=== PATIENT | female | born 1955 | race Caucasian/White ===

== ENCOUNTER 2017-02-22 09:05 | Emergency (ER) | payer BC ==
[~2017-02-22] VITALS: Ht 149.8 cm; Wt 68.0 kg
[~2017-02-22 09:05] MED LIST: FLEXERIL10 MG PO; HYDROCODONE BIT1 T11 PO; KEFLEX500 MG PO; MOTRIN600 MG PO; PREDNICOT20 MG PO
[2017-02-22] MEDS ORDERED: MULTIPLE VITAM1 EAC2 PO (09:12)
[2017-02-22] MEDS ORDERED: AMOXICILLIN500 M2 PO (09:28)
[2017-02-22] MEDS ORDERED: PREDNISONE20 M1 PO (09:28)
[2017-02-22] MEDS ORDERED: ROBITUSSIN DM 105 ML PO (09:28)
== END 2017-02-22 09:51 | disposition home or self-care (01) ==
LOC: ED 09:05
DX: J20.9 Acute bronchitis, unspecified (principal); Z79.899 Other long term (current) drug therapy

== ENCOUNTER 2017-05-10 09:14 | Emergency (ER) | payer BC ==
[~2017-05-10] VITALS: Wt 74.8 kg
[~2017-05-10 09:14] MED LIST changes: +AMOXICILLIN500 M2 PO; +MULTIPLE VITAM1 EAC2 PO; +PREDNISONE20 M1 PO; +ROBITUSSIN DM 105 ML PO
[2017-05-10 09:45] LABS: BASO % 0.3 % (0.0-1.0); EOS % 0.3 % (1.0-4.0); HEMATOCRIT 42.8 % (37.0-47.0); HEMOGLOBIN 13.2 g/dl (12.0-16.0); LYMPH # 0.7 10*3/uL (1.3-4.4); LYMPH % 5.2 % (27.0-41.0); MEAN CELL VOLUME 88.6 fl (81.0-99.0); MEAN CORPUSCULAR HGB 27.3 pg (27.0-31.0); MEAN CORPUSCULAR HGB CONC 30.8 g/dl (33.0-37.0); MEAN PLATELET VOLUME 10.9 fl (9.6-12.3); MONO # 0.8 10*3/uL (0.1-1.0); MONO % 5.5 % (3.0-9.0); NEUT # 12.3 10*3/uL (2.3-7.9); NEUT % 88.4 % (47.0-73.0); PLATELET COUNT AUTOMATED 211 10*3/uL (130-400); RED BLOOD COUNT 4.83 10*6/uL (4.10-5.10); RED CELL DISTRI WIDTH 12.6 % (0-14.5); WHITE BLOOD COUNT 13.9 10*3/uL (4.8-10.8)
[2017-05-10 09:58] LABS: ALBUMIN 3.5 gm/dl (3.1-4.5); ALKALINE PHOSPHATASE 89 U/L (45-117); BUN 20 mg/dl (7-24); CHLORIDE 108 mmol/L (98-107); CREATININE 0.77 mg/dL (0.55-1.02); LIPASE 61 U/L (73-393); POTASSIUM 3.7 mmol/L (3.5-5.1); SGOT/AST 14 IU/L (3-35); SGPT/ALT 19 U/L (12-78); SODIUM 140 mmol/L (136-145); TOTAL PROTEIN 7.7 gm/dL (6.4-8.2)
[2017-05-10] MEDS ORDERED: CIPRO500 MG PO (10:12)
[2017-05-10] MEDS ORDERED: FLAGYL500 MG PO (10:12)
[2017-05-10] MEDS ORDERED: FLORASTOR250 MG PO (10:12)
== END 2017-05-10 11:00 | disposition home or self-care (01) ==
LOC: ED 09:14
PROVIDERS: Emergency Medicine
DX: K57.32 Diverticulitis of large intestine without perforation or abscess without bleeding (principal); Z79.899 Other long term (current) drug therapy

== ENCOUNTER → 2017-06-20 | Outpatient (CLI) | payer BC ==
[~2017-06-20] MED LIST changes: +CIPRO500 MG PO; +FLAGYL500 MG PO; +FLORASTOR250 MG PO
== END | disposition home or self-care (01) ==
LOC: MAMMO 16:11
DX: Z12.31 Encounter for screening mammogram for malignant neoplasm of breast (principal)

== ENCOUNTER → 2017-07-01 | Outpatient (CLI) | payer BC ==
[2017-07-01 10:50] LABS: BASO # 0.1 10*3/uL (0.0-0.1); BASO % 0.9 % (0.0-1.0); EOS # 0.2 10*3/uL (0.0-0.4); EOS % 4.3 % (1.0-4.0); HEMATOCRIT 44.8 % (37.0-47.0); HEMOGLOBIN 14.1 g/dl (12.0-16.0); LYMPH # 1.4 10*3/uL (1.3-4.4); LYMPH % 25.7 % (27.0-41.0); MEAN CELL VOLUME 87.7 fl (81.0-99.0); MEAN CORPUSCULAR HGB 27.6 pg (27.0-31.0); MEAN CORPUSCULAR HGB CONC 31.5 g/dl (33.0-37.0); MEAN PLATELET VOLUME 11.3 fl (9.6-12.3); MONO # 0.4 10*3/uL (0.1-1.0); NEUT # 3.3 10*3/uL (2.3-7.9); NEUT % 60.7 % (47.0-73.0); PLATELET COUNT AUTOMATED 247 10*3/uL (130-400); RED BLOOD COUNT 5.11 10*6/uL (4.10-5.10); RED CELL DISTRI WIDTH 12.3 % (0-14.5); WHITE BLOOD COUNT 5.4 10*3/uL (4.8-10.8)
[2017-07-01 11:16] LABS: BUN 26 mg/dl (7-24); CHLORIDE 104 mmol/L (98-107); POTASSIUM 3.6 mmol/L (3.5-5.1); SODIUM 141 mmol/L (136-145)
[2017-07-01 11:24] LABS: ALKALINE PHOSPHATASE 90 U/L (45-117); CHOLESTEROL 245 mg/dL (<200); CREATININE 0.98 mg/dL (0.55-1.02); FREE T4 0.89 ng/dl (0.76-1.46); HDL CHOLESTEROL 56 mg/dl (40-60); LDL CHOLESTEROL 168 mg/dL (9-159); SGOT/AST 20 IU/L (3-35); SGPT/ALT 20 U/L (12-78); TOTAL PROTEIN 7.8 gm/dL (6.4-8.2); TRIGLYCERIDES 106 mg/dl (<150); VLDL CHOLESTEROL 21 mg/dL (6-40)
== END ==
LOC: LAB 09:55
PROVIDERS: Family Medicine
DX: Z13.21 Encounter for screening for nutritional disorder (principal); I10 Essential (primary) hypertension; E66.9 Obesity, unspecified

== ENCOUNTER → 2018-01-30 | Outpatient (CLI) | payer BC | END | disposition home or self-care (01) | LOC: RAD 16:10 | DX: M25.461 Effusion, right knee (principal) ==

== ENCOUNTER → 2018-06-11 | Outpatient (CLI) | payer OTHER ==
[~2018-06-11] MED LIST changes: +FOLGARD TABLET1 EACH PO; +IBU600 M1 PO; +LIPITOR10 MG PO; +OMEPRAZOLE20 M3 PO; +ST. JOSEPH ASPI81 M1 PO; +ZESTORETIC 10-1 EACH PO
== END | disposition home or self-care (01) ==
LOC: ORTHO 01:06 → RAD 09:00 → ORTHO 15:30
DX: S69.90XA Unspecified injury of unspecified wrist, hand and finger(s), initial encounter (principal); M17.11 Unilateral primary osteoarthritis, right knee; M25.761 Osteophyte, right knee; M25.461 Effusion, right knee; M79.89 Other specified soft tissue disorders; X58.XXXA Exposure to other specified factors, initial encounter; Y93.89 Activity, other specified; Y92.89 Other specified places as the place of occurrence of the external cause; Y99.8 Other external cause status

== ENCOUNTER → 2018-09-10 | Outpatient (CLI) | payer OTHER | END | disposition home or self-care (01) | LOC: CT 08-23 17:00 | DX: M17.11 Unilateral primary osteoarthritis, right knee (principal); M21.161 Varus deformity, not elsewhere classified, right knee ==

== ENCOUNTER → 2018-10-22 | Outpatient (CLI) | payer OTHER ==
[~2018-10-22] VITALS: Ht 149.8 cm; Wt 70.3 kg
== END | disposition home or self-care (01) ==
LOC: SDC 09-27 13:15 → LAB 12:00 → SDC 10-23 01:37 → EDSTATUS 10-23 13:15 → SDC 10-23 13:15
DX: M17.11 Unilateral primary osteoarthritis, right knee (principal)

== ENCOUNTER 2018-11-13 01:29 | Inpatient (IN) | payer OTHER ==
[2018-11-06 16:15] VITALS: BP 119/67
[2018-11-13] VITALS (8 sets, daily range): BP systolic 113–142; BP diastolic 62–75
[~2018-11-13] VITALS: Ht 149.9 cm; Wt 70.3 kg
--- NOTE | 2018-11-13 14:56 | NUR ---
IS AWARE OF HER CONSULT.
--- NOTE | 2018-11-13 15:00 | NUR ---
A 63, admitted to , under the services of REGAN Laguna MD with a diagnosis of RTK POST-OP. Chief complaint is RTK. Patient arrived via bed from [place]. Monitor applied. Initial assessment completed. Vital signs taken and recorded. REGAN LAGUNA MD notified of admission to the unit. Orders received. See assessment for past medical history, medications and allergies. Patient and/or family oriented to unit. Clothing/patient valuable form completed. ROSEANNA SABILLON
--- NOTE | 2018-11-13 15:00 | NUR ---
Time: 1500 A 63 year old FEMALE admitted to under services of DR. LILIA GRIMM,REGAN. Pt. arrived via bed from [place]. Chief complaint: RTK POST-OP. ROSEANNA SABILLON
--- NOTE | 2018-11-13 15:31 | NUR ---
WAS INFORMED THAT PATIENT IS OUT OF SURGERY AND IN ROOM, SINCE WAS SEEING FOR . INFORMED NO ADMIT TO ORDERS AT THIS TIME AND HOME MEDS WERE VERIFIED. STATED PATIENT TO BE IMC AT THIS TIME.
--- NOTE | 2018-11-13 15:36 | NUR ---
Pt instructed on incentive spirometer. 1500c 10 breaths. Encouraged pt to use on own 10x an hour. HR 89 SpO2 on room air 100%
[2018-11-14] VITALS: BP 113/68
[2018-11-14 04:00] VITALS: BP 127/65
--- NOTE | 2018-11-14 05:55 | NUR ---
CLAUDIO GUTIÉRREZ [id number] Please refer to the physician's history and physical for past medical history, comorbid conditions, and allergies. Diagnosis: RIGHT KNEE POST OP Jaren Score: 18,LOW OR NO RISK WOUND DESCRIPTIONS: Dressing intact to right leg. Patient stated she had surgery yesterday with Dr. Murphy for a knee replacement. She stated she will make her follow up appointment with Dr. Murphy for discharge. No strikethrough drainage noted at time of assessment. Patient stated she is able to wiggle her toes this morning and is starting to get feeling back from surgery yesterday. Surface the patient is resting on: Isoflex SKIN PREVENTION RECOMMENDATION: 1. Pressure redistribution support surface as appropriate 2. Elevate heels 3. Remove boots/TEDS every shift and reapply 4. Head of bed 30 degrees as tolerated 5. Assess nutrition and hydration 6. Manage moisture 7. Avoid the use of containment devices while in bed 8. Use absorptive products on surfaces limit layers of linens on bed 9. Turn and reposition every 1-2 hours in bed and every 1 hour in chair as tolerated 10. Weight shifts every 15 minutes while up in chair 11. Offloading with pillows or device to keep heels elevated off bed 12. Monitor skin at least every shift 13. Inspect under medical devices twice a day WOUND TREATMENT RECOMMENDATIONS: Heel raiser pro boots to bilateral feet while in bed. Continue Dr. Becker post op orders to right knee.
[2018-11-14 06:28] LABS: BASO % 0.2 % (0.0-1.0); LYMPH % 10.5 % (27.0-41.0); MEAN CELL VOLUME 91.8 fl (81.0-99.0); MEAN CORPUSCULAR HGB 28.5 pg (27.0-31.0); MEAN PLATELET VOLUME 11.1 fl (9.6-12.3); MONO # 0.7 10*3/uL (0.1-1.0); MONO % 7.4 % (3.0-9.0); NEUT # 7.8 10*3/uL (2.3-7.9); NEUT % 81.6 % (47.0-73.0); PLATELET COUNT AUTOMATED 210 10*3/uL (130-400); RED BLOOD COUNT 3.16 10*6/uL (4.10-5.10); RED CELL DISTRI WIDTH 11.8 % (0-14.5); WHITE BLOOD COUNT 9.6 10*3/uL (4.8-10.8)
[2018-11-14 06:46] LABS: CREATININE 1.12 mg/dL (0.55-1.02); POTASSIUM 3.5 mmol/L (3.5-5.1)
--- NOTE | 2018-11-14 07:15 | NUR ---
ARRIVED ONSHIFT, INTRODUCED TO PATIENT, BEDSIDE REPORT RECEIVED, WHITE BOARD UPDATED. NO NEEDS VOICED AT THSI TIME.
[2018-11-14 08:00] VITALS: BP 140/70
--- NOTE | 2018-11-14 08:01 | NUR ---
Shift chart check completed.
--- NOTE | 2018-11-14 08:50 | NUR ---
PHYSICAL THERAPY Physical therapy evaluation completed. Full details and evaluation to follow. Low complexity skilled PT evaluation performed ([id number]). PT will work on strength, bed mobility, transfers, gait, and stair training per POC. Recommend home with home health pending patient achieves stair goals. Thank you, Genie Stapleton, SPT Kamilah Brown,PT,DPT.
--- NOTE | 2018-11-14 09:02 | NUR ---
Wound Care Recommendations left with Peggy nurse caring for patient as well as left message with Dr. Little.
--- NOTE | 2018-11-14 09:17 | NUR ---
Occupational Therapy evaluation completed 5 with full eval to follow.Precautions include R TKA precautions, wh walker use, CPM use to RLE, moderate complexity level 16654 via chart review, testing and evaluation. Recommend OT per POC and home with home health SN, OT PT. Thank you Kita Saenz OTR/L
--- NOTE | 2018-11-14 11:00 | NUR ---
Robot Technician in to talk to patient. Patient states lives at home with her and son. There are 4 steps in the home. Physician: Dr. Viet Little [facility]acy: [facility] Home health services: [facility] Patient's level of ADLs: MINIMAL ASSIST Patient has working utilities: yes DME: walker Follow-up physician's appointment after d/c: she prefers to make her own follow up appt after discharge Does patient want to access PORTAL?: no Discharge plan discussed with patient. She lives at home with her and her son but plans on staying with her sister once she is discharged form the hospital as her is a entry level truck driver that will be on the road for 2-3 weeks at a time and her son works in the [employer] field. Her sister has 3 steps to get into her home. She doesn't think she will need a BSC as the bathroom she will be using is catty corner to where she will be staying. She states she has a walker. Discussed short term SNF and she refuses. Discussed home health care services and she is agreeable. When provided with a list of agencies she chose [facility]. She is normally independent in her ADLs and ambulation. Her will transport on discharge. PAUL ALVARADO
[2018-11-14 12:00] VITALS: BP 116/61
--- NOTE | 2018-11-14 13:15 | NUR ---
OT NOTE Patient was seen this date for 20 minutes of OT treatment. Patient was supine in bed upon arrival and was agreeable to OT treatment. Patient's was additionally in the room. Patient performed bed mobility with Min A lifting the R LE. Patient was seated EOB with "some dizziness". Patient performed functional sit/stand and mobility with the ww into the bathroom with Min A. Patient educated on safe ww use at the sink with good carryover. Patient stood at the sink for grooming tasks to increase activity tolerance in stance. Patient in stance for approximately 6 minutes. Patient returned to EOB for education of adaptive equipment for lower body dressing. Patient demonstrated good carryover of task with Min A with the sock aid to don and supervision with the crop roller to doff. Patient returned supine in bed for completion of OT treatment. Nursing and DOUGH MOLDER in room at conclusion. Nursing donned knee CPM machine. All needs were within reach. Patient to continue with OT treatment to maximize independence in ADLs and functional mobility/transfers. Rocio Juarez, OTR/L
--- NOTE | 2018-11-14 13:25 | NUR ---
PHYSICAL THERAPY PT SUPINE IN BED UPON ARRIVAL WITH IV AND CATH AND OVER THE BED TRAPIZE. PT IDENTIFIED BY NAME AND SOB. PT AGREED TO ALL PHYSICAL THERAPY THREATMENT THIS VISIT. PT PERFORMED SUPINE TO SITTING EOB WITH Shay X1 WITH RLE. PT PERFORMED SIT TO STAND FROM BED TO FWW WITH SBA. PT GAIT TRAINED 15FT X2 WITH FWW AND CGA X1 WITH ANTALGIC GAIT. PT PERFORMED STS TO EOB WITH SBA AND USE OF BUE FOR ASSIATANCE. PT PERFORMED SIT TO SUPINE WITH Shay X1 WITH RLE. PT SUPINE IN BED WITH CPM RN UROLOGY LIGHT IN HAND AND FAMILY MEMBER PRESENT AT END OF SESSION. PT REPORTED NO OTHER NEEDS AT THIS TIME. PT SEEN 1:1 FOR 14 MINS. PIEREC DEVI PTA
--- NOTE | 2018-11-14 15:36 | NUR ---
CALL PLACED TO DR. LEE TO CLARIFY WHEN DRESSING IS TO BE CHANGED, ORDER READS DRESSING CHANGE POST OP DAY 2 WITH SURGER BEING YESTERDAY.
[2018-11-14 16:00] VITALS: BP 117/41
[2018-11-14 20:00] VITALS: BP 112/46
--- NOTE | 2018-11-14 21:19 | NUR ---
PATIENT C/O OF ONGOING HEADACHE NOT RELIEVED BY ROUTINE ULTRAM, MEDICATED WITH 1 PERCOCET, PATIENT DECLINED 2ND TABLET.
--- NOTE | 2018-11-14 22:20 | NUR ---
PATIENT RESTING QUIETLY WITH EYES CLOSED, RESPIRATIONS EASY AND NON LABORED. PAIN MEDICATION EFFECTIVE.
--- NOTE | 2018-11-14 22:48 | NUR ---
PATIENT TAKEN OFF CPM MACHINE D/T BEING ON ALL DAY AND C/O OF R KNEE DISCOMFORT. BLANKET ROLL PLACED UNDER ANKLE AND ICE PACS IN PLACE. PATIENT READJUSTED. STATED SHE ELT BETTER. CPM FLEXION DEGREE TO IN CREASE FROM 30 TO 40 DEGREE WHEN PLACED BACK ON.
[2018-11-15] VITALS: BP 113/51
--- NOTE | 2018-11-15 03:00 | NUR ---
TOOK OVER CARE OF PATIENT AT THIS TIME. PT LYING IN BED, SLEEPING. RESPIRATIONS EASY AND UNLABORED WITH NO S/S OF DISTRESS. IV FLUIDS INFUSING. CALL LIGHT IN REACH.
[2018-11-15 06:38] LABS: BASO % 0.4 % (0.0-1.0); EOS % 0.6 % (1.0-4.0); HEMATOCRIT 25.7 % (37.0-47.0); HEMOGLOBIN 8.1 g/dl (12.0-16.0); LYMPH % 13.9 % (27.0-41.0); MEAN CELL VOLUME 91.5 fl (81.0-99.0); MEAN CORPUSCULAR HGB 28.8 pg (27.0-31.0); MEAN CORPUSCULAR HGB CONC 31.5 g/dl (33.0-37.0); MEAN PLATELET VOLUME 11.2 fl (9.6-12.3); MONO # 0.6 10*3/uL (0.1-1.0); MONO % 8.7 % (3.0-9.0); NEUT # 5.5 10*3/uL (2.3-7.9); PLATELET COUNT AUTOMATED 161 10*3/uL (130-400); RED BLOOD COUNT 2.81 10*6/uL (4.10-5.10); RED CELL DISTRI WIDTH 11.9 % (0-14.5); WHITE BLOOD COUNT 7.3 10*3/uL (4.8-10.8)
[2018-11-15 08:00] VITALS: BP 130/63
--- NOTE | 2018-11-15 08:00 | NUR ---
PHYSICAL THERAPY Patient seen this am 1:1 for therapy visit and was supine bed upon therapist arrival. Patient presented with continuous IV treatment and voices mild 2/10 c/o R knee pain. Patient also presents with increased R upper Gastroc edema but no c/o of pain upon therapist palpation. Patient transfers supine to sit EOB Min A, requiring therapist assist for R LE support during transfer. Patient completed sit to stand CGA and ambulates with use of wh walker, CGA, 20'x 1 to bathroom, then 30'x 1 to bedside chair. Patient demonstrates decreased stride with antalgic, "step to" gait pattern. Patient is unsteady at times during 180 turns and fatigues quickly. Patient remained in bedside chair semi reclined with R LE elevated on towel roll, call light, tray table, cell phone and body alarm. Will continue per POC as tolerated, total treatment time 17 minutes. Manjit Rodriguez, DRINKING WATER TECHNICIAN
--- NOTE | 2018-11-15 08:45 | NUR ---
CPM MACHINE PLACED TO PT'S RIGHT LEG AT THIS TIME PER THERAPY DEPT.
--- NOTE | 2018-11-15 09:30 | NUR ---
PT MEDICATED WITH PERCOCET 2 TABS FOR C/O RIGHT KNEE SURGICAL SITE PAIN.
--- NOTE | 2018-11-15 09:43 | NUR ---
OT NOTE PATIENT SEEN FOR 25 MINUTE SESSION THIS DAY AND IDENTIFIED BY NAME AND . PATIENT SUPINE IN BED UPON ARRIVAL AND STATED 2/10 PAIN AT START OF SESSION. BED MOBILITY WITH MIN A. STS WITH MIN A FROM EOB. FUNCTIONAL MOBILITY INTO BATHROOM AREA WITH SBA. GROOMING TASKS COMPLETE WHILE STANDING SINK SIDE WITH SBA. EDUCATION ON PROPER SEQUENCING WITH WW REQUIRED. PATIENT COMPLETE FUNCTIONAL TRANSFER TO RECLINER WITH SBA/CGA AND VERBAL CUES FOR HAND/FOOT PLACEMENT DURING TRANSFER. PATIENT ENDED SESSION SEATED IN RECLINER WITH ALL ITEMS IN PLACE. PATIENT STATED 5/10 PAIN AT END OF SESSION. CONTINUE WITH CURRENT POC AND D/C PLAN TO HOME WITH HH. DEANNA CARMEN/Donna
--- NOTE | 2018-11-15 10:53 | NUR ---
Nutritional Support Services Note: Dx of right total knee. Ht.4'11 Wt.155#. Appetite is fair to good for meals. Discussed good po intake and adaquate protein intake to promote healing. No other nutrition intervention needed at this time. Will follow as needed. Xochitl Duggan Rdn Ld
--- NOTE | 2018-11-15 11:00 | NUR ---
cocktail lounge manager in to see patient. No new needs or request at this time. Family present at the bedside. Per multidisciplinary discharge planning meeting 3rd day post op would be tomorrow, Monday. Possible discharge on Monday. When medically stable she will be discharged to home with [facility] services.
--- NOTE | 2018-11-15 12:03 | NUR ---
VERBAL ORDER TO D/C FLUIDS REC'D FROM . SEE APR.
--- NOTE | 2018-11-15 12:30 | NUR ---
PHYSICAL THERAPY Patient seen this pm 1;1 for therapy visit and was supine in bed upon therapist arrival. Patient voices no c/o's pain, stating she just had recent pain Med. Patient instructed / performed supine B LE therex, all planes, x 15 reps each, including ankle pumps, Quad / Glute sets with 5 sec hold, heel slides and SLR x 2. Patient demonstrated increased difficulty with R LE hip flexion and heel slide secondary to decreased ROM / strength. Patient transfers supine to sit EOB with use of overhead trapeze, CGA with only Min therapist assist of R LE. Patient completed sit to stand CGA and ambulates with use of wh walker, CGA, 50'x 1, demonstrating increased stride, no c/o's pain and good upright posture. Patient returned to supine in bed with only mild fatigue and was very happy with her gait progress. Patient remained in bed with call light, tray table, cell phone and bed alarm as lunch arrived. Will continue per POC as tolerated, total treatment time 23 minutes. Manjit Rodriguez, MEAT MOLDER
--- NOTE | 2018-11-15 12:45 | NUR ---
SCHEDULED TRAMADOL GIVEN FOR PAIN RATED 2/10. CALL LIGHT IN REACH. SITTING UP, EATING LUNCH. INFORMED TO CALL FOR NURSE WHEN SHE URINATES FOR POST-REMOVAL OF CORREA CATH. PT ACKNOWLEDGED UNDERSTANDING.
--- NOTE | 2018-11-15 13:07 | NUR ---
OT NOTE PATIENT SEEN FOR 15 MINUTE SESSION THIS DAY WITH DAUGHTER PRESENT AND IDENTIFIED BY NAME AND . PATIENT WITH NO C/I PAIN AT THIS TIME AFTER RECIEVING PAIN MEDS. PATIENT ABLE TO COMPLETE BED MOBILITY WITH MIN A FOR POSITIONING OF RLE. STS FROM EOB AT SBA TO WW. FUNCTIONAL MOBILITY WITH SBA WITH NOTICABLE IMPROVEMENT OF TECHNIQUES. PATIENT RETURNED TO EOB WITH SBA. MIN A FOR BED MOBILITY POSITIONING OF RLE. PATIENT ENDED SESSION SUPINE IN BED WITH HOB ELEVATED AND ALL ITEMS IN PLACE. CONTINUE CURRENT POC WITH D/C PLAN TO HOME. DEANNA CARMEN/Donna
--- NOTE | 2018-11-15 15:12 | NUR ---
Spoke to Trina in Dr. Murphy's office regarding possibility of discharge tomorrow and if a CPM will be needed for home. Dr. Murphy will return tomorrow.
[2018-11-15 16:00] VITALS: BP 97/48
--- NOTE | 2018-11-15 20:56 | NUR ---
SURGICAL DRSG CHANGED PER ORDERS. TOLERATED WELL. NO VOICED COMPLAINTS. ICE PACK BEHIND KNEE. CALL LIGHT IN REACH IVF GOING WITH EASE
--- NOTE | 2018-11-15 23:00 | NUR ---
ASSUMED CARE FOR THIS PT AT THIS TIME. NO C/O VOICED AT PRESENT TIME. DENIES NEED FOR PAIN MED. CALL LIGHT IN REACH.
[2018-11-16] VITALS: BP 120/53
[2018-11-16 06:51] LABS: BASO % 0.4 % (0.0-1.0); EOS # 0.1 10*3/uL (0.0-0.4); EOS % 1.1 % (1.0-4.0); HEMOGLOBIN 8.3 g/dl (12.0-16.0); LYMPH % 13.5 % (27.0-41.0); MEAN CELL VOLUME 91.9 fl (81.0-99.0); MEAN CORPUSCULAR HGB 29.3 pg (27.0-31.0); MEAN CORPUSCULAR HGB CONC 31.9 g/dl (33.0-37.0); MEAN PLATELET VOLUME 11.3 fl (9.6-12.3); MONO # 0.5 10*3/uL (0.1-1.0); MONO % 7.5 % (3.0-9.0); NEUT # 5.6 10*3/uL (2.3-7.9); NEUT % 77.2 % (47.0-73.0); PLATELET COUNT AUTOMATED 179 10*3/uL (130-400); RED BLOOD COUNT 2.83 10*6/uL (4.10-5.10); RED CELL DISTRI WIDTH 11.9 % (0-14.5); WHITE BLOOD COUNT 7.2 10*3/uL (4.8-10.8)
--- NOTE | 2018-11-16 08:30 | NUR ---
Spoke to Trina at Dr. Murphy's office regarding ordering of CPM for home. Trina states PCP will need to order home Lovenox. Dr. Little notified.
--- NOTE | 2018-11-16 08:40 | NUR ---
PHYSICAL THERAPY Patient seen this am 1;1 for therapy visit and was supine in bed upon therapist arrival. Patient identified by name and , voicing mild 2/10 R knee pain. Patient transfers supine to sit EOB with MIN/CGA, only needing therapist assist to hold R LE during transfer. Patient performed several sit to stand transfers at bedside CGA, demonstrating improved technique with increased confidence. Patient ambulates with wh walker, CGA, 30'x 2 to bathroom, completing toilet transfer, SBA x 1. Patient returned to supine in bed demonstrating improved gait maciej and only mild fatigue. Patient able to use overhead trapeze bar for HOB positioning and performed supine B LE therex, all planes, x 10 reps each without c/o. Patient remained in bed with call light, tray table, cell phone and bed alarm. Will continue per POC as tolerated, total treatment time 23 minutes. Manjit Rodriguez, BOILER/CHILLER TECHNICIAN
--- NOTE | 2018-11-16 09:06 | NUR ---
Faxed home health order to [facility]
--- NOTE | 2018-11-16 10:29 | NUR ---
PT PLACED ON CPM MACHINE AT THIS TIME. INCREASED TO 50 TODAY.
--- NOTE | 2018-11-16 10:47 | NUR ---
[facility] not in contract with patient's insurance per Whit at [facility]. Faxed home health care referral to [facility]. Awaiting response.
[2018-11-16 12:00] VITALS: BP 131/55
--- NOTE | 2018-11-16 12:23 | NUR ---
Spoke to Monday at [facility]. They received the referral. Their clinical director is currently out of the office and will review when she returns. Awaiting return call.
[2018-11-16] MEDS ORDERED: Lovenox80 MG/0.8 SC (12:35)
--- NOTE | 2018-11-16 13:19 | NUR ---
Received call from Sangeeta from [facility]. They are full and are unable to take patient at this time. Spoke to Whit at [facility] as they are on the home healthcare list sent from [employer] and Whit states they are not in contract with them. Home health care referral faxed to [facility]. Awaiting response.
--- NOTE | 2018-11-16 13:48 | NUR ---
PHYSICAL THERAPY CO-SIGN I approve of the Physical Therapy notes written above. PAUL ARAUJO PT,DPT
--- NOTE | 2018-11-16 13:55 | NUR ---
Faxed CPM to [facility]. Awaiting response.
--- NOTE | 2018-11-16 14:17 | NUR ---
Spoke to Pat at [facility] regarding referral. Their billing is currently reviewing the patient's insurance and will return call.
--- NOTE | 2018-11-16 14:29 | NUR ---
Spoke to Julian at [facility] regarding coverage for patient's CPM at home. Patient's insurance is out of network. Cost will be $40 for the first day and $15 for subsequent days. Discussed with patient and her and daughter who are at the bedside. She is not able to afford that. Spoke to Reji in Dr. Murphy's office who stated it was patient's choice whether she wanted to have the CPM or not. Explained to patient it was her choice whether she wanted the CPM at home. She states at this time they wish not to make that payment.
--- NOTE | 2018-11-16 14:38 | NUR ---
Called to room to speak to patient and regarding home CPM. They wish to pay a week. Spoke to Julian at [facility] regarding patient and family are willing to pay for 7 days. Julian states when the machine is dropped off they will expect payment. Patient and informed and ok with that. Spoke to Katherin from [facility]. They will be able to start services tomorrow. Patient, , and nurse notified.
--- NOTE | 2018-11-16 15:05 | NUR ---
OCCUPATIONAL THERAPY CO-SIGN I approve of the Occupational Therapy notes written above. ED MCGRATH OTR/Donna
--- NOTE | 2018-11-16 15:46 | NUR ---
Discharge instructions reviewed with patient/family. Patient receptive and verbalizes understanding. Follow-up care arranged. Written instructions given to patient/family. LENORE GRANDE
== END 2018-11-16 15:46 | disposition home health service (06) | DRG 469 ==
LOC: SDC 01:29 → 5E 09:24 → SDC 10:30 → 5E 15:33
PROVIDERS: Orthopaedic Surgery; ADMIT Internal Medicine
PROC: 0SRC0J9 Replacement of Right Knee Joint with Synthetic Substitute, Cemented, Open Approach (ICD-10-PCS; principal; 2018-11-13)
DX: M17.11 Unilateral primary osteoarthritis, right knee (principal); N17.0 Acute kidney failure with tubular necrosis; D64.9 Anemia, unspecified; I95.9 Hypotension, unspecified; K21.9 Gastro-esophageal reflux disease without esophagitis; E78.5 Hyperlipidemia, unspecified; I10 Essential (primary) hypertension; K57.90 Diverticulosis of intestine, part unspecified, without perforation or abscess without bleeding; E83.51 Hypocalcemia; E87.8 Other disorders of electrolyte and fluid balance, not elsewhere classified; R73.9 Hyperglycemia, unspecified; Z82.49 Family history of ischemic heart disease and other diseases of the circulatory system; Z83.3 Family history of diabetes mellitus; Z79.82 Long term (current) use of aspirin; Z79.899 Other long term (current) drug therapy

== ENCOUNTER → 2018-12-19 | Outpatient (CLI) | payer OTHER ==
[~2018-12-19] MED LIST changes: +Lovenox80 MG/0.8 SC
== END | disposition home or self-care (01) ==
LOC: ORTHO 00:05
DX: Z96.651 Presence of right artificial knee joint (principal)

== ENCOUNTER → 2019-04-18 | Outpatient (CLI) | payer OTHER ==
[2019-04-18 16:39] LABS: BASO # 0.1 10*3/uL (0.0-0.1); BASO % 0.6 % (0.0-1.0); EOS # 0.1 10*3/uL (0.0-0.4); HEMATOCRIT 40.7 % (37.0-47.0); HEMOGLOBIN 12.1 g/dl (12.0-16.0); LYMPH # 2.1 10*3/uL (1.3-4.4); LYMPH % 26.4 % (27.0-41.0); MEAN CELL VOLUME 91.3 fl (81.0-99.0); MEAN CORPUSCULAR HGB 27.1 pg (27.0-31.0); MEAN CORPUSCULAR HGB CONC 29.7 g/dl (33.0-37.0); MONO # 0.5 10*3/uL (0.1-1.0); MONO % 6.5 % (3.0-9.0); NEUT # 5.2 10*3/uL (2.3-7.9); NEUT % 65.2 % (47.0-73.0); PLATELET COUNT AUTOMATED 284 10*3/uL (130-400); RED BLOOD COUNT 4.46 10*6/uL (4.10-5.10); RED CELL DISTRI WIDTH 12.7 % (0-14.5); WHITE BLOOD COUNT 7.9 10*3/uL (4.8-10.8)
== END | disposition home or self-care (01) ==
LOC: LAB 16:23
PROVIDERS: Ophthalmology
DX: H35.52 Pigmentary retinal dystrophy (principal); R05 Cough

== ENCOUNTER → 2019-05-27 | Outpatient (CLI) | payer OTHER | END | disposition home or self-care (01) | LOC: ORTHO 00:39 | DX: Z96.651 Presence of right artificial knee joint (principal) ==

== ENCOUNTER → 2020-06-12 | Outpatient (CLI) | payer MEDICARE | END | disposition home or self-care (01) | LOC: US 11:00 | PROVIDERS: ATTEND Internal Medicine Nephrology | DX: N28.1 Cyst of kidney, acquired (principal); N28.89 Other specified disorders of kidney and ureter; N18.31 Chronic kidney disease, stage 3a ==

== ENCOUNTER → 2021-01-27 | Outpatient (CLI) | payer MEDICARE | END | disposition home or self-care (01) | LOC: COVID19 17:05 | PROVIDERS: ATTEND Internal Medicine | DX: U07.1 COVID-19 (principal) ==

== ENCOUNTER → 2022-05-26 | Outpatient (CLI) | payer MEDICARE | END | disposition home or self-care (01) | LOC: MAMMO 05-16 10:30 | PROVIDERS: ATTEND Internal Medicine | DX: Z12.31 Encounter for screening mammogram for malignant neoplasm of breast (principal) ==

== ENCOUNTER → 2022-07-15 | Outpatient (CLI) | payer MEDICARE | END | disposition home or self-care (01) | LOC: RAD 12:08 | PROVIDERS: ATTEND Internal Medicine | DX: M43.17 Spondylolisthesis, lumbosacral region (principal); M47.817 Spondylosis without myelopathy or radiculopathy, lumbosacral region; M47.816 Spondylosis without myelopathy or radiculopathy, lumbar region; M54.42 Lumbago with sciatica, left side ==

== ENCOUNTER → 2023-12-18 | Outpatient (CLI) | payer MEDICARE | END | disposition home or self-care (01) | LOC: MAMMO 11-13 10:00 | PROVIDERS: ATTEND Internal Medicine | DX: Z12.31 Encounter for screening mammogram for malignant neoplasm of breast (principal) ==

== ENCOUNTER → 2024-07-19 | Outpatient (CLI) | payer OTHER | END | disposition home or self-care (01) | LOC: RAD 00:19 | PROVIDERS: ATTEND Internal Medicine | DX: M81.0 Age-related osteoporosis without current pathological fracture (principal); Z78.0 Asymptomatic menopausal state ==